=== PATIENT | female | born 1995 | race Caucasian/White ===

== ENCOUNTER 2018-05-27 09:37 | Day surgery (SDC) | payer OTHER ==
[2018-05-27] MEDS ORDERED: LIDOCAINE 1% MDV 20ML VIAL SQ (10:00)
[2018-05-27] MEDS: LR 1,000 ML IV (10:58)
[2018-05-27 11:03] LABS: CONTROL LINE UCG INT CTR LINE PRESENT; URINE PREG TEST NEGATIVE (NEGATIVE)
[2018-05-27] MEDS ORDERED: fentaNYL 100 MCG/2 ML INJECTION (J3010) As Ordered (12:31)
[2018-05-27] MEDS ORDERED: ROCURONIUM BROMIDE 50 MG/5 ML VIAL As Ordered (12:31)
[2018-05-27] MEDS ORDERED: LIDOCAINE 2% INJ 100 MG/5 ML SDV (FOR ANES.) As Ordered (12:31)
[2018-05-27] MEDS ORDERED: PROPOFOL 200 MG/20 ML VIAL As Ordered (12:31)
[2018-05-27] MEDS ORDERED: MIDAZOLAM INJ 2 MG/2 ML VIAL (J2250) As Ordered (12:31)
[2018-05-27] MEDS: dexameTHASONE 4 MG/ML 1ML VIAL (J1100) IV (13:20)
[2018-05-27] MEDS: AMPICILLIN SOD/SULBACTAM SOD 3 GM in D5W MINI-BAG PLUS 100 ML IV (13:20)
[2018-05-27] MEDS: LIDOCAINE 2% W/ EPINEPHRINE 1.7 ML DENTAL INJ As Ordered ×2 (13:35)
[2018-05-27] MEDS ORDERED: LR 1,000 ML IV (14:30)
[2018-05-27] MEDS ORDERED: ONDANSETRON 4MG/2ML VIAL (J2405) IV (14:30)
[2018-05-27] MEDS ORDERED: fentaNYL 100 MCG/2 ML INJECTION (J3010) IV (14:30)
[2018-05-27] MEDS: NORCO, ANEXSIA 5/325MG TABLET (HYDROcodone/ACETAMINOPHEN) PO (15:30)
== END 2018-05-27 16:17 | disposition home or self-care (01) ==
LOC: M SDC 09:37
DX: K01.1 Impacted teeth (principal); F41.9 Anxiety disorder, unspecified; E66.01 Morbid (severe) obesity due to excess calories
CPT/HCPCS: D7210